=== PATIENT | male | born 1990 ===

== ENCOUNTER 2017-05-27 12:04 | Emergency (ER) | payer OTHER ==
[~2017-05-27] VITALS: Ht 185.4 cm; Wt 99.8 kg
[2017-05-27 12:11] VITALS: BP 121/75
== END 2017-05-27 12:36 | disposition other institution (70) ==
LOC: ED 12:04
DX: S16.1XXA Strain of muscle, fascia and tendon at neck level, initial encounter (principal); V43.92XA Unspecified car occupant injured in collision with other type car in traffic accident, initial encounter; Y93.89 Activity, other specified; Y99.8 Other external cause status; Y92.89 Other specified places as the place of occurrence of the external cause